=== PATIENT | male | born 1940 | race Caucasian/White ===

== ENCOUNTER 2017-08-27 12:18 | Inpatient (IN) ==
[2017-08-27 14:06] LABS: Basophils # 0.1 10*3/uL (0.0-0.2); Basophils % 0.4 % (0.0-0.8); Eosinophils # 0.3 10*3/uL (0.0-0.87); Eosinophils % 1.5 % (0.00-10.9); Hematocrit 44.6 VOL% (42.0-52.0); Hemoglobin 14.3 GM/DL (14.0-18.0); Immature Granulocytes % 0.5 %; Immature Granulocytes Absolute 0.08 #; Lymphocytes # 7.1 10*3/uL (1.4-4.0); Lymphocytes % 42.3 % (21.2-54.2); Mean Corpuscular HGB Conc 32.1 GM/DL (32-36); Mean Corpuscular Hemoglobin 26 PG (27-34); Mean Corpuscular Volume 81.5 FL (87-102); Mean Platelet Volume 10.8 FL (9.6-12.0); Monocytes # 1.1 10*3/uL (0.11-0.8); Monocytes % 6.2 % (1.7-12.7); Neutrophils # 8.3 10*3/uL (1.4-7.4); Neutrophils % 49.1 % (38.7-73.9); Platelet Count 292 T/CUMM (130-400); Red Blood Count 5.47 MC/CUMM (3.8-5.5); Red Cell Distribution Width 13.8 % (9.3-17.3); White Blood Count 16.8 T/CUMM (4-12)
[2017-08-27 14:16] LABS: INR 0.9; PT Patient Result 9.4 SECS
[2017-08-27 14:33] LABS: Alanine Aminotransferase 18 U/L (16-61); Albumin 3.3 G/DL (3.4-5.0); Alkaline Phosphatase 106 U/L (45-117); Aspartate Amino Transferase 8 U/L (0-37); Blood Urea Nitrogen 12 MG/DL (7-18); Calcium 8.3 MG/DL (8.5-10.1); Glucose 158 MG/DL (74-106); Magnesium 2.1 MG/DL (1.8-2.4); Osmolality,Calculated 288.8 MOS/KG (273-304); Potassium 3.5 MMOL/L (3.5-5.1); Sodium 144 MMOL/L (136-145); Total Protein 5.9 G/DL (6.4-8.3); Troponin I Only < 0.015 NG/ML (0.00-0.045)
[2017-08-27] MEDS ORDERED: DEXAMETHASONE 4 MG/1 ML VIAL IV STA (14:38)
[2017-08-27 14:48] LABS: Vitamin B12 1087 PG/ML (211-911)
[2017-08-27] MEDS ORDERED: DEXAMETHASONE 10 MG/1 ML VIAL ONE (14:59)
[2017-08-27 15:12] LABS: Ammonia 19 UMOL/L (11-32)
[2017-08-27 15:19] LABS: Apearance,Urine CLEAR (Clear); Bilirubin,Urine Negative (Negative); Blood, Urine Small mg/dL (Negative); Glucose,Urine (UA) Negative (Negative); Ketones,Urine Negative (Negative); Mucus,Urine Many /LPF (Occasional); Nitrite,Urine Negative (Negative); Protein,Urine 30 MG/DL; RBC,Urine 40 /HPF (0-4); Urine Color Yellow (Yellow); Urine Specific Gravity > 1.060 (1.001-1.035); Urine Urobilinogen < 2.0 EU/DL (0.2-1.0); WBC,Urine 8 /HPF (0-6)
[2017-08-27 15:25] LABS: Barbiturates Screen,Urine Negative (Negative); Benzodiazepines Screen,Urine Positive (Negative); Cannabinoid Screen,Urine Negative (Negative); Opiate Screen,Urine Positive (Negative); Phencyclidine Screen,Urine Negative (Negative)
[2017-08-27 15:29] LABS: Sedimentation Rate-Westergren 30 MM/HR (0-20)
[2017-08-27] MEDS ORDERED: diphenhydrAMINE CAP 25 MG CAPSULE PO PRN (18:04)
[2017-08-27] MEDS ORDERED: LACTULOSE 20 GM/30 ML UDCUP PO PRN (18:04)
[2017-08-27] MEDS ORDERED: MYLANTA/LIDO VISC 2:1 300 ML BOTTLE SWISH/SPIT PRN (18:04)
[2017-08-27] MEDS ORDERED: traMADol 50 MG TABLET PO PRN (18:04)
[2017-08-27] MEDS ORDERED: ACETAMINOPHEN 325 MG TABLET PO PRN (18:04)
[2017-08-27] MEDS ORDERED: MYLANTA/LIDO VISC 2:1 300 ML BOTTLE SWISH/SWAL PRN (18:04)
[2017-08-27] MEDS ORDERED: chlorproMAZINE INJ 25 MG in SODIUM CHLORIDE 0.9% 100 ML IV PRN (18:04)
[2017-08-27] MEDS ORDERED: ONDANSETRON 4 MG/2 ML VIAL IV PRN (18:04)
[2017-08-27] MEDS ORDERED: LOPERAMIDE 2 MG CAPSULE PO PRN ×2 (18:04)
[2017-08-27] MEDS ORDERED: ALPRAZolam 0.25 MG TABLET PO PRN (18:04)
[2017-08-27] MEDS ORDERED: PROMETHAZINE INJ 25 MG in SODIUM CHLORIDE 0.9% 50 ML IV PRN (18:04)
[2017-08-27] MEDS ORDERED: chlorproMAZINE 25 MG TABLET PO PRN (18:04)
[2017-08-27] MEDS ORDERED: TEMAZEPAM 7.5 MG CAPSULE PO PRN (18:04)
[2017-08-27] MEDS ORDERED: chlorproMAZINE INJ 50 MG in SODIUM CHLORIDE 0.9% 100 ML IV PRN (18:04)
[2017-08-27] MEDS ORDERED: MAGNESIUM HYDROXIDE SUSP 30 ML UDCUP PO PRN (18:04)
[2017-08-27] MEDS ORDERED: BENZTROPINE 2 MG/2 ML AMP IV PRN (18:04)
[2017-08-27] MEDS ORDERED: ALUMINUM/MAGNES/SIMETH MAX STR 30 ML UDCUP PO PRN (18:04)
[2017-08-27] MEDS ORDERED: guaiFENesin 200 MG/10 ML UDCUP PO PRN (18:04)
[2017-08-27] MEDS: DEXAMETHASONE 4 MG/1 ML VIAL IV SCH (19:20)
[2017-08-27] MEDS: SODIUM CHLORIDE 0.9% 1,000 ML IV SCH (19:20)
[2017-08-27 20:08] LABS: Basophils # 0.1 10*3/uL (0.0-0.2); Basophils % 0.3 % (0.0-0.8); Eosinophils # 0.1 10*3/uL (0.0-0.87); Eosinophils % 0.3 % (0.00-10.9); Hematocrit 44.4 VOL% (42.0-52.0); Hemoglobin 14.1 GM/DL (14.0-18.0); Immature Granulocytes % 0.7 %; Immature Granulocytes Absolute 0.12 #; Lymphocytes # 5.3 10*3/uL (1.4-4.0); Lymphocytes % 30.8 % (21.2-54.2); Mean Corpuscular HGB Conc 31.8 GM/DL (32-36); Mean Corpuscular Hemoglobin 26 PG (27-34); Mean Corpuscular Volume 81.6 FL (87-102); Mean Platelet Volume 11.8 FL (9.6-12.0); Monocytes # 0.3 10*3/uL (0.11-0.8); Monocytes % 1.5 % (1.7-12.7); Neutrophils # 11.5 10*3/uL (1.4-7.4); Neutrophils % 66.4 % (38.7-73.9); Platelet Count 299 T/CUMM (130-400); Red Blood Count 5.44 MC/CUMM (3.8-5.5); Red Cell Distribution Width 13.9 % (9.3-17.3); White Blood Count 17.3 T/CUMM (4-12)
[2017-08-27 20:34] LABS: Albumin 3.4 G/DL (3.4-5.0); Calcium 8.5 MG/DL (8.5-10.1); Magnesium 2.1 MG/DL (1.8-2.4); Potassium 3.9 MMOL/L (3.5-5.1); Total Protein 6.1 G/DL (6.4-8.3); Uric Acid 3.2 MG/DL (3.5-7.2)
[2017-08-28] MEDS: DEXAMETHASONE 4 MG/1 ML VIAL IV SCH ×3 (00:11→12:16)
[2017-08-28] MEDS: ALBUTEROL/IPRATROPIUM 3 ML NEB RESP TX PRN ×3 (06:52→20:12)
[2017-08-28] MEDS: SODIUM CHLORIDE 0.9% 1,000 ML IV SCH (08:18)
[2017-08-28] MEDS ORDERED: DEXTROSE 50% 25 GM/50 ML VIAL IV PRN (09:36)
[2017-08-28] MEDS ORDERED: GLUCAGON 1 MG VIAL IM PRN (09:36)
[2017-08-28] MEDS: PANTOPRAZOLE 40 MG VIAL IV SCH (12:20)
[2017-08-28] MEDS: INSULIN REGULAR 100 UNIT/ML SUBCUT SCH ×3 (12:23→22:04)
[2017-08-29] MEDS: SODIUM CHLORIDE 0.9% 1,000 ML IV SCH ×2 (03:53→18:14)
[2017-08-29] MEDS: ALBUTEROL/IPRATROPIUM 3 ML NEB RESP TX PRN (08:29)
[2017-08-29] MEDS: PANTOPRAZOLE 40 MG VIAL IV SCH (09:30)
[2017-08-29] MEDS: INSULIN REGULAR 100 UNIT/ML SUBCUT SCH ×4 (09:34→22:26)
[2017-08-29] MEDS: cefTRIAXone 1,000 MG in SYRINGE 1 EACH IV SCH (13:35)
[2017-08-29] MEDS: ALBUTEROL/IPRATROPIUM 3 ML NEB RESP TX SCH (15:09)
[2017-08-29] MEDS: DEXAMETHASONE 4 MG TABLET PO SCH ×2 (18:15→22:27)
[2017-08-30] MEDS: ALBUTEROL/IPRATROPIUM 3 ML NEB RESP TX SCH ×4 (00:39→23:56)
[2017-08-30] MEDS: SODIUM CHLORIDE 0.9% 1,000 ML IV SCH (07:41)
[2017-08-30] MEDS ORDERED: ONDANSETRON 4 MG TABLET PO PRN (09:10)
[2017-08-30] MEDS: PANTOPRAZOLE 40 MG VIAL IV SCH (09:34)
[2017-08-30] MEDS: PANTOPRAZOLE 40 MG TABLET PO SCH ×2 (09:44→21:26)
[2017-08-30] MEDS: DEXAMETHASONE 4 MG TABLET PO SCH ×3 (09:44→21:27)
[2017-08-30] MEDS: INSULIN REGULAR 100 UNIT/ML SUBCUT SCH ×4 (09:46→21:28)
[2017-08-30] MEDS: ALBUTEROL 2 MG TABLET PO SCH ×2 (15:10→21:27)
[2017-08-30] MEDS: cefTRIAXone 1,000 MG in SYRINGE 1 EACH IV SCH (15:12)
[2017-08-30] MEDS: THEOPHYLLINE ER 300 MG TABLET PO SCH (21:23)
[2017-08-30] MEDS: CILOSTAZOL 100 MG TABLET PO SCH (21:23)
[2017-08-30] MEDS: glyBURIDE 5 MG TABLET PO SCH (21:26)
[2017-08-30] MEDS: clonazePAM 0.5 MG TABLET PO SCH (21:26)
[2017-08-30] MEDS: FAMOTIDINE 20 MG TABLET PO SCH (21:27)
[2017-08-30] MEDS: PHENYTOIN ER 100 MG CAPSULE PO SCH (21:27)
[2017-08-30] MEDS: LATANOPROST 0.005% OPH SOLN 2.5 ML BOTTLE BOTH EYES SCH (21:30)
[2017-08-31 05:25] LABS: Apearance,Urine CLEAR (Clear); Bilirubin,Urine Negative (Negative); Blood, Urine Negative (Negative); Glucose,Urine (UA) 50 mg/dL (Negative); Ketones,Urine Negative (Negative); Mucus,Urine Occasional /LPF (Occasional); Nitrite,Urine Negative (Negative); Protein,Urine Negative; RBC,Urine 1 /HPF (0-4); Squamous Epithelial Cell,Urine Occasional /HPF (0-10); Urine Color Yellow (Yellow); Urine Specific Gravity 1.011 (1.001-1.035); Urine Urobilinogen < 2.0 EU/DL (0.2-1.0); WBC,Urine 3 /HPF (0-6)
[2017-08-31] MEDS: LEVOTHYROXINE 50 MCG TABLET PO SCH (06:35)
[2017-08-31] MEDS: ALBUTEROL/IPRATROPIUM 3 ML NEB RESP TX SCH ×2 (08:02→15:17)
[2017-08-31] MEDS: INSULIN REGULAR 100 UNIT/ML SUBCUT SCH ×4 (08:15→21:02)
[2017-08-31] MEDS: DEXAMETHASONE 4 MG TABLET PO SCH ×3 (09:52→21:00)
[2017-08-31] MEDS: THEOPHYLLINE ER 300 MG TABLET PO SCH ×2 (09:53→21:11)
[2017-08-31] MEDS: PHENYTOIN ER 100 MG CAPSULE PO SCH ×2 (09:53→21:11)
[2017-08-31] MEDS: MONTELUKAST 10 MG TABLET PO SCH (09:53)
[2017-08-31] MEDS: CILOSTAZOL 100 MG TABLET PO SCH ×2 (09:53→21:00)
[2017-08-31] MEDS: PANTOPRAZOLE 40 MG TABLET PO SCH ×2 (09:54→21:11)
[2017-08-31] MEDS: ALBUTEROL 2 MG TABLET PO SCH ×3 (09:54→21:00)
[2017-08-31] MEDS: AMOXICILLIN/CLAV 875 MG TABLET PO SCH ×2 (09:54→21:00)
[2017-08-31] MEDS: glyBURIDE 5 MG TABLET PO SCH ×2 (09:54→21:00)
[2017-08-31] MEDS: FAMOTIDINE 20 MG TABLET PO SCH (21:00)
[2017-08-31] MEDS: clonazePAM 0.5 MG TABLET PO SCH (21:00)
[2017-08-31] MEDS: LATANOPROST 0.005% OPH SOLN 2.5 ML BOTTLE BOTH EYES SCH (21:03)
[2017-09-01] MEDS: ALBUTEROL/IPRATROPIUM 3 ML NEB RESP TX SCH ×2 (00:21→07:50)
[2017-09-01] MEDS: LEVOTHYROXINE 50 MCG TABLET PO SCH (06:51)
[2017-09-01] MEDS: INSULIN REGULAR 100 UNIT/ML SUBCUT SCH (07:40)
[2017-09-01] MEDS: PANTOPRAZOLE 40 MG TABLET PO SCH (10:12)
[2017-09-01] MEDS: AMOXICILLIN/CLAV 875 MG TABLET PO SCH (10:12)
[2017-09-01] MEDS: PHENYTOIN ER 100 MG CAPSULE PO SCH (10:12)
[2017-09-01] MEDS: THEOPHYLLINE ER 300 MG TABLET PO SCH (10:12)
[2017-09-01] MEDS: DEXAMETHASONE 4 MG TABLET PO SCH (10:13)
[2017-09-01] MEDS: CILOSTAZOL 100 MG TABLET PO SCH (10:13)
[2017-09-01] MEDS: ALBUTEROL 2 MG TABLET PO SCH (10:13)
[2017-09-01] MEDS: MONTELUKAST 10 MG TABLET PO SCH (10:13)
[2017-09-01] MEDS: glyBURIDE 5 MG TABLET PO SCH (10:13)
[2017-09-01 10:51] VITALS: BP 148/77
== END 2017-09-01 12:45 | disposition home or self-care (01) | DRG 54 ==
LOC: N.ED 12:18 → N.EDINP 15:05 → N.4E 17:39
PROVIDERS: ADMIT Specialist; ATTEND Specialist